=== PATIENT | female | born 1945 | race Caucasian/White ===

== ENCOUNTER → 2018-07-26 08:20 | Outpatient (CLI) | payer MEDICARE, SELFPAY ==
--- NOTE | 2018-07-26 08:32 | XR_ITS ---
XR DEXA axial skeleton HISTORY: ITS.REASON: OSTEOPENIA ORDERING PHYSICIAN: Jimbo Benitez MD PATIENT AGE: 73 years COMPARISON: 02/11/2016 FINDINGS: The BMD measured at the AP spine L1-L4 is 0.684 g/cm squared with a T score of -4.1. This is considered Osteoporotic according to the World Health Organization criteria. Fracture risk is high. Treatment is advised. Lumbar spine density has decreased by 25%. The mean hip density has a T score of -1.1 and has decreased by 3%. IMPRESSION: Osteoporosis with high fracture risk. Treatment suggested. Recommend follow-up exam July 2019 to follow response to treatment
== END ==
PROVIDERS: Family Provider Family Medicine; PCP Family Medicine; Visit Provider Family Medicine
DX: M85.89 Other specified disorders of bone density and structure, multiple sites (principal)
CPT/HCPCS: 77080

== ENCOUNTER → 2018-11-14 10:55 | Outpatient (CLI) | payer MEDICARE, SELFPAY ==
--- NOTE | 2018-11-14 11:00 | XR_ITS ---
XR coccyx 2V COMPARISON: None HISTORY: L bone pain after falling down steps TECHNIQUE: AP and lateral views FINDINGS: The sacrum and coccyx appear grossly intact with no evidence of fracture or subluxation. There are mild degenerative changes lower lumbar spine with disc space narrowing at L5-S1 level and hypertrophic facet changes at the L4-5 and L5-S1 levels. IMPRESSION: No obvious coccygeal fracture or subluxation, if symptoms persist a CT scan of the pelvis with bony algorithm may be helpful
== END ==
PROVIDERS: PCP Emergency Medicine; Visit Provider Emergency Medicine
DX: S39.92XA Unspecified injury of lower back, initial encounter (principal); W10.8XXA Fall (on) (from) other stairs and steps, initial encounter
CPT/HCPCS: 72220

== ENCOUNTER 2021-08-27 16:25 | Emergency (ER) | payer MEDICARE, SELFPAY ==
[2021-08-27 16:26] VITALS: BP 147/97; PULSE 82; RESP 17; TEMP 36.9; O2SAT 95; BMI 23.3
--- NOTE | 2021-08-27 16:35 | HMH.EDGENADL ---
ED Disposition Clinical Impression: Diverticulitis Disposition: Home, Self-Care Condition on Discharge: Good Instructions: DI for Acute Abdominal Pain Prescriptions: Amoxicillin/Potassium Clav [Augmentin 875-125 Tablet] 1 tab PO Q12H #14 tab Transmission Status: Received by [id number] Referrals: Jimbo Benitez MD [Primary Care Provider] - - Critical Care Critical Care Time: No Attestation: On , the high probability of a clinically significant, sudden or life threatening deterioration of the following system(s) required my full and direct attention, intervention and personal management. The time I documented below is in addition to time spent performing reported procedures but includes the following listed in this critical care notation. Medical Decision Making - Medical Records Medical records reviewed: Yes: I reviewed the patient's medical records. - Marco Inquiry Pt receiving controlled substance: No Vital Signs: 08/27/21 16:26 08/27/21 19:36 Temperature 98.5 F 98.7 F Temperature Source Oral Oral Pulse Rate 96 H Pulse Rate [Right Radial] 82 Respiratory Rate 17 16 Blood Pressure 126/94 H Blood Pressure [Right Arm] 147/97 H Blood Pressure Mean [Right Arm] 113 Blood Pressure Source [Right Arm] Automatic Cuff Blood Pressure Position [Right Arm] Supine 02 Sat by Pulse Oximetry 95 Oxygen Delivery Method Room Air Room Air - Lab Data Lab Results 08/27/21 17:03: WBC 11.8 H, RBC 4.37, Hgb 14.2, Hct 43.1, MCV 98.5, MCH 32.5 H, MCHC 32.9, RDW 12.9, Plt Count 222, MPV 8.6, Neut % (Auto) 82.0 H, Lymph % (Auto) 12.3, [place] % (Auto) 4.2, Eos % (Auto) 1.0, Baso % (Auto) 0.4, Neut # (Auto) 9.7 H, Lymph # (Auto) 1.5, [place] # (Auto) 0.5, Eos # (Auto) 0.1, Baso # (Auto) 0.1 08/27/21 17:03: Sodium 141, Potassium 4.1, Chloride 105, Carbon Dioxide 30, Anion Gap 10.1, BUN 12, Creatinine 0.60, Estimated Creat Clear 49, Estimated GFR 98, Est GFR ( Amer) 118, Glucose 100, Calcium 9.0, Total Bilirubin 0.3, AST 24, ALT 15, Alkaline Phosphatase 113, Total Protein 6.8, Albumin 4.0, Globulin 2.8, Albumin/Globulin Ratio 1.4, Amylase 78, Lipase 136 08/27/21 17:11: Urine Color Yellow, Urine Appearance Clear, Urine pH 6.0, Ur Specific [place] 1.020, Urine Protein Negative, Urine Glucose (UA) Negative, Urine Ketones Trace, Urine Blood Trace-i, Urine Nitrate Negative, Urine Bilirubin Negative, Urine Urobilinogen 0.2, Ur Leukocyte Esterase Negative, Urine RBC Occasional, Urine WBC None, Ur Squamous Epith Cells None, Urine Bacteria None Result diagrams: 08/27/21 17:03 08/27/21 17:03 Orders (Tests/Meds): ED MEDICATIONS Discontinued Medications Generic Name Dose Route Start Last Admin Trade Name Freq PRN Reason Stop Dose Admin Iopamidol 75 ml 08/27/21 17:52 08/27/21 17:53 Iopamidol-370 (76%);100ml Bottle IV 08/27/21 17:53 75 ml ONCE ONE Administration Medical Decision Narrative: Patient is a 76-year-old female presents to the ED today with left lower quadrant abdominal pain. Differential diagnosis includes diverticulitis, constipation, bowel gas pain, perforation, colon cancer, femoral hernia. Patient is well-appearing on initial evaluation, was able to ambulate to the room, not significantly tachycardic and no hypotension noted. We will order CBC and CMP, urinalysis, CT of the abdomen pelvis with IV contrast, this plan was discussed with the patient and she is amenable and will proceed as stated. CT scan performed with evidence of diverticulitis in the left lower quadrant, there is no evidence of complicated diverticulitis no perforation and no abscess. Given this patient was reassessed, abdomen remains only tender in the left lower quadrant and no peritoneal nail signs. Given this we will treat the patient with Augmentin twice daily for 7 days, patient will follow up with primary care, and believes she can make an appointment either tomorrow or Wednesday. Just the importance of
--- NOTE | 2021-08-27 16:36 | CT_ITS ---
PROCEDURE INFORMATION: Exam: CT Abdomen And Pelvis With Contrast Exam date and time: 08/27/2021 4:36 PM Age: 76 years old Clinical indication: Abdominal pain; Localized; Left lower quadrant (llq); Patient HX: Left lower quad pain x 4 hours TECHNIQUE: Imaging protocol: Computed tomography of the abdomen and pelvis with contrast. Radiation optimization: All CT scans at this facility use at least one of these dose optimization techniques: automated exposure control; mA and/or kV adjustment per patient size (includes targeted exams where dose is matched to clinical indication); or iterative reconstruction. Contrast material: ISOVUE; Contrast volume: 75 ml; Contrast route: IV; COMPARISON: DX COCCYX XR coccyx 2V 11/14/2018 11:08 AM FINDINGS: Lungs: Calcified left pulmonary granuloma. Mild compressive atelectasis in the lower lungs due to a prominent hiatal hernia. No focal consolidation, as visualized. Liver: Upper normal liver size. A 5 mm hypoattenuating right liver lesion series 3, image 25 and coronal series 601, image 30, probably tiny cyst but this is too small to accurately characterize. No suspicious appearing mass. Gallbladder and bile ducts: Slight haziness of the gall bladder wall which could be due to mild edema versus motion artifacts series 3, image 36, series 601, image 29. No calcified gallstones. No biliary dilatation. Pancreas: The pancreas is normal. Spleen: No splenomegaly. Calcified granuloma. Adrenal glands: The adrenal glands are normal. Kidneys and ureters: A simple appearing 11 mm anterior right upper lobe renal cortical cystic lesion, enhanced HU density 18. No septations or nodules are seen. Small subcentimeter hypoattenuating lesions in the left kidney which may also be tiny cysts, too small to accurately characterize. No hydronephrosis, hydroureter, or obstructing calcified stones. Stomach and bowel: Diverticulosis coli. Findings of acute left lower quadrant diverticulitis; a short segment of severe colon wall thickening/edema, surrounding mesenteric edema and trace pericolic fluid, coronal series 601, images 28-35. No organized pericolic abscess collection, or extraluminal gas bubbles. No colon dilatation/obstruction. Scattered small intestinal air-fluid levels could be minimal ileus or enteritis, but there is no mucosal thickening or significant bowel dilatation. There is a large hiatal hernia, almost entire herniation of the stomach into the chest, stomach is incompletely imaged on this exam. There may be some extraluminal fluid abutting the stomach in the hernia, series 3, image 1. Appendix: A normal appendix is identified. Intraperitoneal space: There is no free intraperitoneal air. There is trace left lower quadrant pericolic fluid, but no organized abscess collection. Vasculature: There is no aortic aneurysm.The vasculature demonstrates scattered mild atherosclerotic calcification. No portal venous gas. Lymph nodes: No significantly enlarged lymph nodes by short axis criteria. Urinary bladder: The urinary bladder appears within normal limits for the degree of distension, not well filled. However, there is slight soft tissue stranding or hypervascularity surrounding the bladder, correlate for history of cystitis. No calcified stones. Reproductive: The uterus and adnexa are within normal limits for age. Bones/joints: Osteopenia.There are spinal degenerative changes, with multilevel disc narrrowing and spondylosis. Lower lumbar facet arthropathy. No acute appearing fracture. Hip degenerative changes. Soft tissues: Bilateral breast implants, incompletely imaged on this exam.There are no soft tissue masses or ot
[2021-08-27 17:15] LABS: Basophils # 0.1 K/mm3 (0-0.2); Basophils % 0.4 % (0.1-2.0); Eosinophils # 0.1 K/mm3 (0.0-0.4); Hematocrit 43.1 % (37.0-47.0); Hemoglobin 14.2 g/dL (12.2-16.2); Lymphocytes # 1.5 K/mm3 (0.7-4.5); Lymphocytes % 12.3 % (10-50); Mean Corpuscular HGB Conc 32.9 g/dL (31.8-35.4); Mean Corpuscular Hemoglobin 32.5 pg (27.0-31.2); Mean Corpuscular Volume 98.5 fl (81-99); Mean Platelet Volume 8.6 fl (7.4-10.4); Monocytes # 0.5 K/mm3 (0.1-1.0); Monocytes % 4.2 % (1.7-9.3); Neutrophils # 9.7 K/mm3 (1.8-7.8); Platelet Count 222 K/mm3 (142-424); Red Blood Count 4.37 M/mm3 (4.20-5.40); Red Cell Distribution Width 12.9 % (11.5-17.5); White Blood Count 11.8 K/mm3 (4.8-10.8)
[2021-08-27 17:22] LABS: Microscopic, Urine URINE MICROSCOPIC (MICROSCOPIC)
[2021-08-27 17:23] LABS: Chloride 105 mmol/L (98-107); Potassium 4.1 mmoL/L (3.5-5.1); Sodium 141 mmol/L (136-145)
[2021-08-27 17:25] LABS: Appearance,Urine CLEAR (Clear); Bilirubin,Urine Negative (Negative); Blood, Urine TRACE-I (Negative); Color,Urine YELLOW (Yellow); Glucose,Urine (UA) Negative (Negative); Ketones,Urine TRACE (Negative); Leukocyte Esterase,Urine Negative (Negative); Nitrate,Urine Negative (Negative); Protein,Urine Negative (Negative); Urobilinogen,Urine 0.2 EU/dl (0.2)
[2021-08-27 17:25] LABS: Amylase 78 U/L (30-110); Blood Urea Nitrogen 12 mg/dl (7-17); Creatinine Clearance Estimated 49 mL/min (50-200); Estimated Glomerular Filt Rate 98 ml/min (>60); GFR (African American) 118 ML/MIN (>60)
[2021-08-27 17:26] LABS: Alanine Aminotransferase 15 U/L (12-78); Albumin/Globulin Ratio 1.4 (1.1-1.8); Alkaline Phosphatase 113 U/L (38-126); Anion Gap 10.1 mEq/L (5-15); Aspartate Amino Transferase 24 U/L (14-36); Bilirubin,Total 0.3 mg/dl (0.2-1.3); Carbon Dioxide 30 mmol/L (22.0-30.0); Globulin 2.8 g/dL (1.3-3.2); Glucose 100 mg/dl (74-100); Lipase 136 U/L (23-300); Total Protein,Serum 6.8 g/dl (6.3-8.2)
--- NOTE | 2021-08-27 17:41 | PC.NURSE ---
Pt went to CT
[2021-08-27 17:48] LABS: RBC,Urine Occasional #/hpf (0-3)
--- NOTE | 2021-08-27 17:57 | PC.NURSE ---
Pt is back from CT
[2021-08-27 19:36] VITALS: BP 126/94; PULSE 96; RESP 16; TEMP 37.1
== END 2021-08-27 19:41 | disposition home or self-care (01) ==
PROVIDERS: Emergency Provider Student in an Organized Health Care Education/Training Program; PCP Family Medicine
DX: K57.92 Diverticulitis of intestine, part unspecified, without perforation or abscess without bleeding (principal)
CPT/HCPCS: 74177; 80053; 81001; 82150; 83690; 85025; 96365; 99283; Q9967